=== PATIENT | male | born 1945 | race Caucasian/White ===

== ENCOUNTER 2025-03-27 22:47 | Emergency (ER) | payer OTHER ==
[~2025-03-27] VITALS: Ht 162.6 cm; Wt 63.5 kg
[2025-03-28 01:08] VITALS: TEMP 98
[2025-03-28] MEDS: ONDANSETRON HCL/PF - ER 4 MG/2 ML VIAL IV ONE (02:17)
[2025-03-28] MEDS ORDERED: MORPHINE SULFATE INJ 2 MG/ML DISP.SYRIN ONE (02:17)
[2025-03-28] MEDS ORDERED: ONDANSETRON HCL/PF 4 MG/2 ML VIAL ONE (02:17)
[2025-03-28] MEDS ORDERED: CLONIDINE HCL 0.1 MG TABLET ONE (02:17)
[2025-03-28] MEDS: MORPHINE SULFATE INJ 2 MG/ML DISP.SYRIN IV ONE (02:17)
[2025-03-28] MEDS: CLONIDINE HCL 0.1 MG TABLET PO ONE (02:18)
[2025-03-28 02:38] LABS: PLATELET COUNT (AUTO) 216 K/uL (150-450); RED BLOOD CELL COUNT(AUTO) 3.60 MIL/uL (4.5-6.0); RED CELL DISTRIBUTION WIDTH 16.0 % (11.5-15.0); WHITE BLOOD COUNT (AUTO) 4.6 K/uL (4.3-11.0)
[2025-03-28 02:46] LABS: CALCIUM, SERUM 9.9 mg/dL (8.5-10.1); CREATININE 1.6 mg/dL (0.6-1.3); SODIUM SERUM 137.0 mmol/L (136-145); UREA NITROGEN, BLOOD 41.0 mg/dL (7-18)
[2025-03-28 02:58] LABS: ASPARTATE AMINOTRANSFERASE 21.0 U/L (15-37); NT-PRO BNP 664.0 pg/mL (0-125); TOTAL PROTEIN, SERUM 7.6 g/dL (6.4-8.2)
[2025-03-28 05:06] LABS: APPEARANCE,URINE CLEAR (CLEAR); BLOOD, URINE NEGATIVE Ery/uL (NEGATIVE); LEUKOCYTE ESTERASE ,URINE NEGATIVE (NEGATIVE); NITRITE, URINE NEGATIVE (NEGATIVE); UGLUCOSE 3+ mg/dL (NEGATIVE)
[2025-03-28 05:16] LABS: ADD URINE CULTURE NO
[2025-03-28 05:17] LABS: SQUAMOUS EPITHELIAL CELL,UR Few /HPF (None Seen)
[2025-03-28] MEDS ORDERED: AZIT250T PO (06:04)
[2025-03-28 06:23] VITALS: BP 157/70; O2SAT 100
== END 2025-03-28 06:23 | disposition home or self-care (01) ==
LOC: ER 22:53
DX: R10.9 Unspecified abdominal pain (principal); R11.0 Nausea; E11.9 Type 2 diabetes mellitus without complications; I10 Essential (primary) hypertension; Z87.441 Personal history of nephrotic syndrome; Z87.442 Personal history of urinary calculi; Z20.822 Contact with and (suspected) exposure to COVID-19
CPT/HCPCS: 99285; 74176; 96374; 71045; 96375; 87426; 93005; 85025; 87040; 81001; 36415; 80053; 84484; 83880; J2405 ×2; J2270